=== PATIENT | male | born 1990 | race Caucasian/White ===

== ENCOUNTER 2017-06-09 21:36 | Emergency (ER) | payer OTHER ==
[~2017-06-09] VITALS: Ht 185.4 cm; Wt 140.2 kg
[2017-06-09 23:28] VITALS: BP 149/90
== END 2017-06-09 23:28 | disposition home or self-care (01) ==
LOC: ED 21:36
DX: L92.8 Other granulomatous disorders of the skin and subcutaneous tissue (principal); L60.0 Ingrowing nail
CPT/HCPCS: J2001

== ENCOUNTER 2017-11-02 21:53 | Emergency (ER) | payer OTHER ==
[~2017-11-02] VITALS: Ht 185.4 cm; Wt 136.5 kg
[2017-11-02 21:57] VITALS: Ht 185.4 cm; Wt 136.5 kg
[2017-11-02 22:57] VITALS: BP 142/90
== END 2017-11-02 22:57 | disposition home or self-care (01) ==
LOC: ED 21:53
DX: K64.9 Unspecified hemorrhoids (principal); J30.9 Allergic rhinitis, unspecified

== ENCOUNTER 2018-03-27 13:40 | Emergency (ER) | payer SELFPAY ==
[~2018-03-27] VITALS: Ht 185.4 cm; Wt 151.0 kg
[2018-03-27 15:13] LABS: CALCIUM 8.5 mg/dL (8.5-10.1); CARBON DIOXIDE 29.1 mmol/L (21-32); CHLORIDE SERUM 104 mmol/L (98-107); CREATININE SERUM 0.9 mg/dL (0.7-1.3); GFR1 > 60 mL/min; GLUCOSE SERUM 96 mg/dL (74-106); POTASSIUM SERUM 3.9 mmol/L (3.5-5.1); SODIUM SERUM 141 mmol/L (136-145)
[2018-03-27 15:14] LABS: AMPHETAMINE QUAL UR NONE DETECTED (NEG <=1000)
[2018-03-27 15:16] LABS: BASOPHIL % 1.5 % (0-2); PLATELET COUNT 245 x10^3mcL (130-400); RED CELL DISTRIBUTION WIDTH 12.4 % (11.5-14.5)
[2018-03-27 15:19] LABS: ALBUMIN 3.9 g/dL (3.4-5.0); ALKALINE PHOSPHATASE 58 U/L (46-116); ALT/SGPT 71 U/L (16-63); AST/SGOT 38 U/L (15-37); BILIRUBIN TOTAL 0.63 mg/dL (0.20-1.00); CHOLESTEROL 150 mg/dL (<200); HDL CHOLESTEROL 40 mg/dL (40-60); TOTAL PROTEIN, SERUM 7.8 g/dL (6.4-8.2)
[2018-03-27 15:29] LABS: T3 TOTAL 0.89 ng/mL
[2018-03-27 15:52] LABS: FREE THYROXINE INDEX 2.6 ug/dL (1.4-4.5); T4(THYROXINE) 7.2 ug/dL (4.7-13.3)
[2018-03-27 17:00] VITALS: BP 145/86
== END 2018-03-27 17:00 | disposition home or self-care (01) ==
LOC: ED 13:40
PROVIDERS: Emergency Medicine
DX: R42 Dizziness and giddiness (principal); R53.1 Weakness
CPT/HCPCS: 36415; 83880; 84439

== ENCOUNTER 2018-08-01 22:06 | Emergency (ER) | payer OTHER ==
[~2018-08-01] VITALS: Ht 185.4 cm; Wt 151.5 kg
[2018-08-01 22:19] VITALS: BP 150/87
== END 2018-08-01 22:43 | disposition home or self-care (01) ==
LOC: ED 22:06
DX: R10.9 Unspecified abdominal pain (principal)

== ENCOUNTER 2019-02-18 08:38 | Emergency (ER) | payer OTHER ==
[~2019-02-18] VITALS: Ht 182.9 cm; Wt 157.4 kg
[2019-02-18 08:44] VITALS: Ht 182.9 cm; Wt 157.4 kg
[2019-02-18 09:43] LABS: BASOPHIL % 0.3 % (0-2); PLATELET COUNT 283 x10^3mcL (130-400)
[2019-02-18 09:48] LABS: CALCIUM 8.4 mg/dL (8.5-10.1); CARBON DIOXIDE 30.3 mmol/L (21-32); CHLORIDE SERUM 104 mmol/L (98-107); CREATININE SERUM 0.9 mg/dL (0.7-1.3); GFR1 > 60 mL/min; GLUCOSE SERUM 102 mg/dL (74-106); SODIUM SERUM 141 mmol/L (136-145)
[2019-02-18 09:52] LABS: ALKALINE PHOSPHATASE 49 U/L (46-116); ALT/SGPT 63 U/L (16-63); AST/SGOT 40 U/L (15-37); CHOLESTEROL 174 mg/dL (<200); CHOLESTEROL/HDL RATIO 3.9; HDL CHOLESTEROL 45 mg/dL (40-60); LIPASE 92 IU/L (73-393); TOTAL PROTEIN, SERUM 7.9 g/dL (6.4-8.2); TRIGLYCERIDES 99 mg/dL (<150)
[2019-02-18 10:00] LABS: FREE T4 0.92 ng/dL (0.76-1.46); FREE THYROXINE INDEX 2.7 ug/dL (1.4-4.5); T4(THYROXINE) 7.2 ug/dL (4.7-13.3)
[2019-02-18 10:08] LABS: T3 TOTAL 0.98 ng/mL
[2019-02-18 12:35] VITALS: BP 158/102
== END 2019-02-18 12:35 | disposition home or self-care (01) ==
LOC: ED 08:38
PROVIDERS: Specialist
DX: R42 Dizziness and giddiness (principal); R10.11 Right upper quadrant pain; R10.12 Left upper quadrant pain
CPT/HCPCS: 82962; 83880; 84439; J7030; Q0092

== ENCOUNTER 2019-07-13 21:47 | Emergency (ER) | payer OTHER ==
[~2019-07-13] VITALS: Ht 182.9 cm; Wt 156.5 kg
[2019-07-13 21:50] VITALS: Ht 182.9 cm; Wt 156.5 kg
[2019-07-14 01:48] VITALS: BP 162/99
== END 2019-07-14 01:48 | disposition home or self-care (01) ==
LOC: ED 21:47
DX: M51.26 Other intervertebral disc displacement, lumbar region (principal); V69.9XXA Occupant (driver) (passenger) of heavy transport vehicle injured in unspecified traffic accident, initial encounter; Y93.I9 Activity, other involving external motion; Y92.413 State road as the place of occurrence of the external cause; Y99.8 Other external cause status
CPT/HCPCS: J1885

== ENCOUNTER 2020-06-13 20:15 | Emergency (ER) | payer OTHER ==
[~2020-06-13] VITALS: Ht 182.9 cm; Wt 134.3 kg
[2020-06-13 20:24] VITALS: Ht 182.9 cm; Wt 134.3 kg
[2020-06-13 21:26] VITALS: BP 140/85
== END 2020-06-13 21:58 | disposition home or self-care (01) ==
LOC: ED 20:15
DX: S46.912A Strain of unspecified muscle, fascia and tendon at shoulder and upper arm level, left arm, initial encounter (principal); R42 Dizziness and giddiness; R03.0 Elevated blood-pressure reading, without diagnosis of hypertension; X58.XXXA Exposure to other specified factors, initial encounter; Y93.89 Activity, other specified; Y92.89 Other specified places as the place of occurrence of the external cause; Y99.8 Other external cause status
CPT/HCPCS: 82962; J1885